=== PATIENT | male | born 1960 | race African-American/Black ===

== ENCOUNTER 2022-04-10 14:25 | Emergency (ER) | payer OTHER, SELFPAY ==
[2022-04-10 14:26] VITALS: BP 128/92; PULSE 113; RESP 15; TEMP 36.4; O2SAT 100; BMI 22.3
--- NOTE | 2022-04-10 14:37 | EKG12_ITS ---
Test Reason : SOB Blood Pressure : / mmHG Vent. Rate : 067 BPM Atrial Rate : 067 BPM P-R Int : 156 ms QRS Dur : 094 ms QT Int : 400 ms P-R-T Axes : 074 000 061 degrees QTc Int : 422 ms Normal sinus rhythm Nonspecific T wave abnormality Abnormal ECG Confirmed by JESUS HARLEY, FRANKIE ([id number]), rewrite editor GEO DE GUZMAN ([id number]) on 04/11/2022 12:00:17 PM Referred By: Confirmed By:FRANKIE LEE MD
--- NOTE | 2022-04-10 14:38 | EX.ED.DYSGE1 ---
HPI History of Present Illness Chief Complaint: Shortness of Breath Detail of Chief Complaint: Cough, chest pain, shortness of breath Informant: patient Narrative Narrative: Patient presents the emergency department with complaint of shortness of breath that seems to have slowed him down. Patient states that he initially started with a cough over the weekend which is about 4 or 5 days ago. Patient complains of intermittent chest discomfort in his chest in the center. Cough is nonproductive and thinks maybe it is getting better. He denies recent travel or surgery. He denies hemoptysis. Chest pain does not seem to be exertional. Patient has not had symptoms like this before. He denies fever. Patient has no medical history and normally goes to the [place]. Patient has no heart history. No history of PE or DVT. PFSH PFSH Home Medications benzonatate 100 mg capsule 100 mg PO TID PRN cough #20 caps 04/10/22 [Rx Last Taken Unknown] Allergy/AdvReac Type Severity Reaction Status Date / Time ibuprofen AdvReac Other Verified 04/10/22 14:26 Social History Smoking Status: Current some day smoker tobacco type: cigarettes ROS ROS ED Review of Systems ROS Unobtainable: other Constitutional Constitutional ED: Reports lethargy; Denies chills, fever(s), sweats or weight loss Eyes Eyes: Denies blurry vision, change in vision or diplopia ENT ENT ED: Denies rhinorrhea or sore throat Cardiovascular Cardiovascular: Reports chest pain; Denies orthopnea or racing heartbeat Respiratory/Chest Respiratory/Chest: Reports cough, dyspnea and dyspnea on exertion; Denies orthopnea or sputum Gastrointestinal Gastrointestinal: Denies abdominal pain, diarrhea, nausea or vomiting Genitourinary Genitourinary ED: Denies dysuria, hematuria or urinary frequency Musculoskeletal Musculoskeletal: Denies arthralgias, back pain, myalgias or neck pain Integumentary Denies abscess, Abrasions or rash Neurologic Neurologic: Denies headache(s) or weakness Psychiatric Psychiatric: Denies anxiety, depression or suicidal thoughts Endocrine Endocrinology: Denies polydipsia, polyphagia or polyuria Hematologic/Lymphatic Hematologic/Lymphatic: Denies easy bleeding, easy bruising or lymphadenopathy Allergic/Immunologic Allergic/Immunologic ED: Denies mouth swelling, tongue swelling or urticaria EXAM Physical Exam Const Vital Signs: 04/10/22 14:26 04/10/22 14:34 04/10/22 16:30 Temperature 97.5 F L Temperature Source Temporal Pulse Rate 113 H 58 L Respiratory Rate 15 14 Respiratory Effort Short of Breath Blood Pressure 128/92 H 152/84 H Blood Pressure Mean 104 106 Pulse Ox 100 100 Oxygen Delivery Method Room Air Room Air Positive well nourished and well developed General Appearance ED: well developed and NAD HEENT Reports TM's clear and moist mucous membranes normocephalic and atraumatic; Negative for trauma or tenderness Tympanic Membrane ED: Yes TM's clear Eyes PERRL and EOMs intact bilaterally General Eye ED: Negative for pale conjunctiva or scleral icterus Neck no lymphadenopathy, supple and no JVD General: Negative for tenderness Chest Wall inspection of chest normal and palpation of chest normal Chest: Negative for tenderness Resp normal respiratory effort and clear to auscultation bilaterally Effort and Inspection: Negative for respiratory distress or pain with movement Auscultation: Negative for rhonchi, wheezes or diminished lung sounds Cardio regular rate, regular rhythm, S1 normal heart sound, S2 normal heart sound and no murmurs Peripheral Pulses: pulses 2+ throughout GI normal to inspection, nondistended, normoactive bowel sounds, soft to palpation, non-tender, non-distended and no masses Back/Spine no CVA tenderness and no thoracic nor lumbar tenderness Extremity normal to inspection General Extremety ED: Negative for edema General Extremity: Negative for edema Neuro oriented x3, CN's II-XII intact bilaterally, no sensory deficits noted and gait normal Sensorium / Orientation: awake, alert, oriented to person, oriented to place and oriented to time Motor Exam: strength 5/5 throughout and strength abnormal Psych mental status grossly normal Skin no rashes or lesions noted and no wounds MDM MDM MDM Narrative Medical decision making narrative: IV line established on arrival. CBC with differential obtained was normal. Chemistries unremarkable. Troponin was normal. EKG showed a sinus rhythm with a rate of 67 bpm with some nonspecific ST changes. Because of the elevated D-dimer a CTA of the chest was obtained which was negative for PE or anything acute. COVID and flu rapid test were negative. At this point I suspect likely a viral upper respiratory infection. Patient will be given a prescription for Tessalon Perles. Patient advised to follow-up with his primary care physician within next 5 to 7 days. Patient to return if increasing shortness of breath, worsening chest pain, or condition worsen anyway. Lab Data Attestation: I reviewed the patient's lab results. Labs: Laboratory Results - last 24 hr 04/10/22 04/10/22 04/10/22 14:45 14:45 14:45 WBC 4.5 RBC 4.51 L Hgb 13.8 Hct 41.2 MCV 91.4 MCH 30.6 MCHC 33.5 RDW Std Deviation 42.9 RDW Coeff of Fady 12.8 Plt Count 173 MPV 8.5 Immature Gran % (Auto) 0.400 Neut % (Auto) 46.6 L Lymph % (Auto) 31.7 [place] % (Auto) 20.5 H Eos % (Auto) 0.4 Baso % (Auto) 0.4 Absolute Neuts (auto) 2.1 Absolute Lymphs (auto) 1.44 Nucleated RBC % 0 D-Dimer Quant (PE/DVT) 0.75 H* Sodium 140 Potassium 3.5 Chloride 108 H Carbon Dioxide 27.0 Anion Gap 5 BUN 18 Creatinine 1.76 H Estim Creat Clear Calc 41.57 Est GFR (MDRD) Af Amer 51 L Est GFR (MDRD) Non-Af 42 L BUN/Creatinine Ratio 10.2 Glucose 118 H Calcium 9.0 Troponin I High Sens 14 Radiography Chest X-Ray - ED: 1 View Diagnostic Testing: Clinical Impression(s) from Imaging Studies Chest X-Ray 04/10/22 15:00 IMPRESSION: Hyperinflation. The lungs are clear. Electronically Signed: Isma Gandhi MD at 15:32 EST , Chest CTA 04/10/22 15:15 IMPRESSION: Negative CTA chest. Electronically Signed: Lindy Schmidt MD at 16:58 EST Reading Location ID and State: [id number] / Tel , Service support , 1 view chest x-ray obtained interpreted by myself as no acute disease process. Radiology in agreement. EKG Initial EKG: Attestation: I personally reviewed and interpreted this EKG as follows: Comments: Sinus rhythm with a rate of [address] changes Discharge Plan Triage Chief Complaint: Shortness of Breath ED Provider: Lila Sinclair Dx/Rx/DC Orders Clinical Impression: Viral URI, Chest pain, Acute dyspnea Instructions: ED Chest Pain, Uncertain Cause, ED Dyspnea, ED URI, Viral, No Abx (Adult) Prescriptions: New benzonatate 100 mg capsule 100 mg PO TID PRN (Reason: cough) Qty: 20 0RF Primary Care Provider: [facility] Referrals: [facility] [Primary Care Provider] - 5-7 Days Disposition Disposition: Home, Self Care
[2022-04-10 14:58] LABS: Absolute Lymphocyte Count 1.44 X10^3/uL (0.83-4.51); Absolute Neutrophil Count 2.1 X10^3/uL (2.0-7.7); Basophil# 0.02 X10^3/uL; Basophil% 0.4 % (0-1); Eosinophil# 0.02 X10^3/uL; Eosinophils% 0.4 % (0-5); Hematocrit 41.2 % (40-54); Hemoglobin 13.8 g/dL (13.0-16.5); Lymphocyte # 1.44 X10^3/ul (0.83-4.51); Lymphocyte % 31.7 % (19-41); Mean Corp Hgb Conc 33.5 g/dL (32-36); Mean Corpuscular Hgb 30.6 pg (27.0-32.0); Mean Corpuscular Volume 91.4 fL (80-94); Mean Platelet Vol. 8.5 fl (6.2-12.0); Monocyte# 0.93 X10^3/uL; Monocyte% 20.5 % (0-10); NRBC Flagged by Analyzer 0 % (0-5); Neutrophil # 2.11 X10^3/uL (2.7-7.7); Neutrophil % 46.6 % (47-70); Platelet Count 173 K/mm3 (150-450); RBC Distribution Width CV 12.8 % (11.6-14.6); RBC Distribution Width SD 42.9 fl (35.1-43.9); Red Blood Count 4.51 M/mm3 (4.6-6.2); White Blood Count 4.5 K/mm3 (4.4-11.0)
--- NOTE | 2022-04-10 15:00 | RAD_ITS ---
STUDY: X-RAY CHEST REASON FOR EXAM: Male, 61 years old. Dyspnea TECHNIQUE: Single AP portable view of the chest. COMPARISON: Comparison is made with prior study dated 11/24/2015. FINDINGS: EKG lead clips are seen. Hyperinflation. The lungs are clear. There is no demonstrated pleural abnormality. Normal size heart. Normal mediastinum and david. Normal visualized pulmonary arteries. There is atherosclerotic tortuosity of the aortic arch and descending thoracic aorta. Normal visualized thoracic spine. Normal visualized ribs, clavicles, and shoulders. There is no demonstrated abnormality of the visualized soft tissue structures of the upper abdomen. RAD/Chest 1 View (Portable) IMPRESSION: Hyperinflation. The lungs are clear. Electronically Signed: Isma Gandhi MD at 15:32 EST ,
[2022-04-10 15:12] LABS: D-Dimer Quantitative (DVT/PE) 0.75 FEU/ug/m (0.27-0.49)
[2022-04-10] MEDS: 0.9% Normal Saline 1,000 ML 1000 ML IV (15:13)
--- NOTE | 2022-04-10 15:15 | CT_ITS ---
EXAM: CT ANGIOGRAPHY CHEST WITHOUT AND WITH INTRAVENOUS CONTRAST CLINICAL INDICATION: chest pain TECHNIQUE: Helically acquired angiography images were obtained of the chest without and with intravenous contrast. This CT exam was performed using one or more of the following dose reduction techniques: automated exposure control, adjustment of the mA and/or kV according to patient size, and/or use of iterative reconstruction technique. This report was created using [employer] report generation technology. MIP reconstructed images were created and reviewed. CONTRAST: IV 100mL Isovue-370 COMPARISON: None. FINDINGS: PULMONARY ARTERIES: Unremarkable. Normal in caliber. No evidence of pulmonary embolism. AORTA: Unremarkable. Normal in caliber. No evidence of dissection. GREAT VESSELS OF AORTIC ARCH: Unremarkable. Normal in caliber. No evidence of dissection. LUNGS AND PLEURAL SPACES: Unremarkable. No mass. No consolidation or edema. No pleural effusion or thickening. No pneumothorax. HEART: Unremarkable. Heart size is normal. No pericardial effusion. No signs of right heart strain, ratio of right ventricle to left ventricle measures less than 1. MEDIASTINUM: Unremarkable. No mediastinal or hilar adenopathy. Esophagus is unremarkable. No hiatal hernia. THYROID: Unremarkable. No thyroid lesions. BONES/JOINTS: Unremarkable. No suspicious lytic or blastic abnormality. CT/CTA Chest W/WO Contrast IMPRESSION: Negative CTA chest. Electronically Signed: Lindy Schmidt MD at 16:58 EST Reading Location ID and State: [id number] / Tel , Service support ,
[2022-04-10 15:17] LABS: Anion Gap 5 (5-15); BUN 18 mg/dL (7-18); BUN/Creat Ratio 10.2 RATIO (10-20); Chloride 108 mmol/L (98-107); Creatinine, Serum 1.76 mg/dL (0.70-1.30); EST Glomerular Filtration Rate 42 mL/min (>60); Est Glom Filt Rate - Afr Amer 51 mL/min (>60); Estimated Creatinine Clearance 41.57 ml/min; Glucose 118 mg/dL (74-106); Potassium 3.5 mmol/L (3.5-5.1); Sodium Level 140 mmol/L (136-145); Troponin-I HS 14 pg/mL (3.0-78.0)
[2022-04-10 16:30] VITALS: BP 152/84; PULSE 58; RESP 14; O2SAT 100
[2022-04-10 17:17] VITALS: BP 158/79; PULSE 62; RESP 15; O2SAT 98
== END 2022-04-10 17:18 | disposition home or self-care (01) ==
PROVIDERS: Emergency Provider Emergency Medicine; Visit Provider Emergency Medicine
DX: J06.9 Acute upper respiratory infection, unspecified (principal); R07.9 Chest pain, unspecified; F17.210 Nicotine dependence, cigarettes, uncomplicated; R06.02 Shortness of breath; Z20.822 Contact with and (suspected) exposure to COVID-19
CPT/HCPCS: 71045; 71275; 80048; 84484; 85025; 85379; 87428; 93005; 96360; 96361; 99283; J7030; Q9967; A4216

== ENCOUNTER 2024-04-22 16:32 | Emergency (ER) | payer OTHER, SELFPAY ==
[2024-04-22 16:32] VITALS: BP 188/103; PULSE 92; RESP 16; TEMP 36.7; O2SAT 100
--- NOTE | 2024-04-22 16:45 | CT_ITS ---
INDICATION: facial trauma EXAMINATION: CT FACIAL BONES - CT Maxillofacial W/O Contrast Injection TECHNIQUE: Helically acquired images were obtained of the facial bones. A radiation dose optimization technique was used for this scan. IV Contrast dosage and agent: None. COMPARISON: None. FINDINGS: SOFT TISSUES: Right-sided facial subcutaneous soft tissue edema. No discrete fluid collections. VISUALIZED PARANASAL SINUSES: Clear. VISUALIZED MASTOID AIR CELLS: Clear. Small amount of abnormal tissue in the right middle ear. Debris in the left external auditory canal. FACIAL BONES, MANDIBLE AND TMJs: No displaced facial bone fracture. No lytic or blastic abnormality. VISUALIZED DENTITION: No periodontal osseous erosion. ORBITAL CONTENTS: Both globes, extraocular muscles and retrobulbar fat appear unremarkable. CT/Sinus/Facial Bone IMPRESSION: No acute fracture the maxillofacial bones. 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 Recommend ENT consultation. Electronically Signed: Raffaele Bradshaw MD at 18:25 EST ,
--- NOTE | 2024-04-22 16:45 | CT_ITS ---
INDICATION: Trauma, head injury EXAMINATION: CT BRAIN - CT Head or Brain W/O Contrast Injection TECHNIQUE: Multiple axial images were obtained of the head without intravenous contrast. A radiation dose optimization technique was used for this scan. IV Contrast dosage and agent: None. COMPARISON: None. FINDINGS: BRAIN PARENCHYMA: No intra- or extra-axial hemorrhage. No evidence of acute infarct. No intracranial mass or mass effect. There is preservation of the amato/white matter interface. Posterior fossa structures are unremarkable. 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 Left temporal craniotomy changes. CSF SPACES: Appropriate for age. No hydrocephalus. Basal cisterns are patent. CALVARIUM, SKULL BASE, PARANASAL SINUSES AND MASTOID AIR CELLS: Clear. No discrete lytic or blastic abnormalities. ORBITS: Both globes, extraocular muscles, optic nerves and retrobulbar fat appear unremarkable. CT/Brain/Head without Contrast IMPRESSION: No acute intracranial findings. Electronically Signed: Raffaele Bradshaw MD at 18:29 EST ,
--- NOTE | 2024-04-22 16:45 | CT_ITS ---
INDICATION: Trauma, fall, injury EXAMINATION: CT CERVICAL SPINE - CT Spine Cervical W/O Contrast Injection TECHNIQUE: Helically acquired images were obtained of the cervical spine. 2D reformatted images were reviewed. A radiation dose optimization technique was used for this scan. IV Contrast dosage and agent: None. COMPARISON: None. FINDINGS: VERTEBRAE: No acute fracture of the cervical spine. Anatomic alignment. DISCS and SPINAL CANAL: Degenerative discogenic changes. No critical stenosis. NECK SOFT TISSUES: No prevertebral soft tissue swelling. LUNG APICES: No acute pulmonary findings. CT/Spine Cervical without Contras IMPRESSION: Degenerative changes. No acute fracture of the cervical spine. Electronically Signed: Raffaele Bradshaw MD at 18:32 EST ,
--- NOTE | 2024-04-22 16:45 | CT_ITS ---
INDICATION: right lower rib cage injury, fall down steps- right sided pain EXAMINATION: CT CHEST WITH CONTRAST - CT Chest W/ Contrast Injection TECHNIQUE: Helically acquired images were obtained of the chest following IV contrast. A radiation dose optimization technique was used for this scan. IV Contrast dosage and agent: 100 cc Isovue-370 COMPARISON: CTA chest 04/10/2022 FINDINGS: LUNGS, PLEURA AND LARGE AIRWAYS: No masses, consolidation, or edema. No pleural effusion. No pneumothorax. THYROID: No thyroid lesions. HEART AND PERICARDIUM: Heart size is normal. No pericardial effusion. VESSELS: No thoracic aortic aneurysm. No aortic dissection. No obvious central pulmonary embolism although this study was not performed with the pulmonary embolism protocol. MEDIASTINUM AND FESTUS: No mediastinal or hilar adenopathy. Esophagus is unremarkable. No hiatal hernia. UPPER ABDOMEN: No acute pathology. BONES: No acute bony abnormality. CT/Chest WITH Contrast IMPRESSION: No acute findings in the thorax. Electronically Signed: Raffaele Bradshaw MD at 18:41 EST ,
--- NOTE | 2024-04-22 16:45 | CT_ITS ---
INDICATION: fall and right lower rib trauma -- fall down steps- right sided pain EXAMINATION: CT ABDOMEN AND PELVIS WITH CONTRAST - CT Abdomen And Pelvis W/ Contrast Injection TECHNIQUE: Helically acquired images were obtained of the abdomen and pelvis following IV contrast. A radiation dose optimization technique was used for this scan. IV Contrast dosage and agent: 100 cc Isovue-370 Oral contrast: None. COMPARISON: None. FINDINGS: LOWER CHEST: Lung bases are clear. No cardiomegaly or pericardial effusion. LIVER: Homogeneous. No laceration or hematoma. GALLBLADDER AND BILIARY TREE: No calcified gallstones. No gallbladder distension or wall edema. No intra- or extrahepatic biliary ductal dilation. PANCREAS: No focal cystic or solid mass. SPLEEN: Unremarkable. ADRENAL GLANDS: No nodules. KIDNEYS AND URETERS: Right renal cysts. No hydronephrosis. PERITONEUM: No ascites or free air. BOWEL: Normal appendix. No stomach or bowel distension. No focal inflammatory change. LYMPH NODES: No enlarged mesenteric or retroperitoneal lymph nodes. VESSELS: Aorta is non-dilated. URINARY BLADDER: Unremarkable. REPRODUCTIVE ORGANS: No pelvic masses. ABDOMINAL WALL: [Fat-containing umbilical hernia. BONES: No acute or aggressive abnormality. CT/Abdomen/Pelvis W IV Cont ONLY IMPRESSION: No acute findings in the abdomen or pelvis. Electronically Signed: Raffaele Bradshaw MD at 18:50 EST ,
--- NOTE | 2024-04-22 16:48 | EX.ED.GENINJ ---
HPI History of Present Illness Chief Complaint: Laceration Informant: patient Onset/Context/Timing Onset: Today and Hours Mechanism/Context: Blunt Injury and Fall Location of pain/injuries: Right hand Quality of Pain: Sharp Current Severity: Mild Maximum Severity: Mild Associated Symptoms Associated Symptoms: Negative for Parasthesias, Weakness, Loss of function, Inability to ambulate or Loss of consciousness Narrative Narrative: 63-year-old male history of chronic kidney disease. States he normally does not drink he had 3 shots of liquor last night. He was going down his steps at his home he lost his balance tripped and fell down about 3 steps. Said he struck his right cheekbone, cut his right hand at the palm by the right small finger and injured his right lower rib cage. He does not believe he lost consciousness. He thinks this occurred around 2 AM. It is now almost 15 hours later. Unsure of his last tetanus. Denies recent illness. Tetanus Immunization: Unknown Prior similar symptoms: No Recent Illness/Hospitalization: No PFSH PFSH Home Medications ?Medication ?Instructions ?Recorded ?Last Taken ?Type benzonatate 100 mg capsule 100 mg PO TID PRN cough #20 caps 04/10/22 Unknown Rx Allergy/AdvReac Type Severity Reaction Status Date / Time ibuprofen AdvReac Other Verified 04/22/24 16:34 Social History Smoking Status: Current every day smoker tobacco type: cigarettes ROS ROS ED ROS Narrative Denies recent illness. Constitutional Constitutional ED: Denies chills or fever(s) Eyes Eyes: Denies blurry vision ENT ENT ED: Denies ear pain Cardiovascular Cardiovascular: Denies chest pain or palpitations Respiratory/Chest Respiratory/Chest: Denies cough or dyspnea Gastrointestinal Gastrointestinal: Denies abdominal pain Genitourinary Genitourinary ED: Denies dysuria or hematuria Musculoskeletal Musculoskeletal: Denies arthralgias or back pain Integumentary Denies abscess Neurologic Neurologic: Reports headache(s) Psychiatric Psychiatric: Denies anxiety or depression Endocrine Endocrinology: Denies cold intolerance Hematologic/Lymphatic Hematologic/Lymphatic: Denies easy bleeding Allergic/Immunologic Allergic/Immunologic ED: Denies mouth swelling EXAM Physical Exam Narrative Exam Narrative: 63-year-old male sitting upright in bed. Vital signs are stable afebrile. He is no acute distress. Pulse ox 9% on room air no signs hypoxia. H EENT exam scalp nontender. No laceration or hematoma. Pupils round reactive light. No dental injury. Right cheek zygomatic arch is tender mildly swollen. No gross bony deformity. Able to open close mouth any difficulty. Neck and trachea nontender. Back and spine nontender. No bruising. Lungs clear to auscultation bilaterally. Heart regular rate and rhythm rate about 90. Chest wall is right anterior lower rib rough planer tender to palpation. There is no crepitus or subcu air. Abdomen is soft, nontender, nondistended normal bowel sounds without peritoneal signs. Pelvic girdle intact. Moving all 4 extremities. Nontender no deformity. Normal strength. Normal range of motion. The palm of his right hand just proximal to the MCP he has a laceration under need to be repaired. Involves skin and subcu tissue. No active bleeding. He has full flexion extension to all digits of his right hand. There is no bony tenderness, deformity or swelling. Hands neurovascularly intact. Both wrists forearms elbows and shoulders are nontender. Neurologically is awake alert. Answering questions following commands. Const Vital Signs: 04/22/24 16:32 Temperature 98.1 F Temperature Source Oral Pulse Rate 92 Respiratory Rate 16 Blood Pressure 188/103 H Blood Pressure Mean 131 Pulse Ox 100 Oxygen Delivery Method Room Air Positive well nourished and well developed; Negative for obese, cachectic, contractures or unkempt General Appearance ED: well developed and NAD; Negative for unkempt, cachectic or contractures Nutritional Appearance: Negative for cachectic or obese HEENT HEENT Narrative: Right cheek bone and zygomatic arch tenderness. trauma and tenderness; Negative for atraumatic Eyes PERRL and EOMs intact bilaterally Chest Wall inspection of chest normal; Negative for palpation of chest normal Chest Narrative: Right lower rib cage tenderness midclavicular line. Resp normal respiratory effort and clear to auscultation bilaterally Auscultation: Negative for rales, rhonchi or wheezes Cardio regular rhythm, S1 normal heart sound, S2 normal heart sound and no murmurs Palpation: Negative for palpable S3 or palpable S4 Rate: regular rate; Negative for tachycardic Rhythm: Negative for abnormal rhythm GI normal to inspection, nondistended, normoactive bowel sounds, non-tender, non-distended and no masses Auscultation: normoactive bowel sounds Palpation: soft; Negative for tender, guarding or rebound tenderness present Back/Spine normal to inspection and no thoracic nor lumbar tenderness General Back: Negative for CVA tenderness Thoracic Spine / Upper Back: Negative for thoracic spinal tenderness Extremity full ROM; Negative for normal to inspection Extremity Narrative: Laceration palmar right hand near the MCP of the right small finger. Full flexion extension. No bleeding or infection. No foreign body. No bony tenderness or deformity. Neuro oriented x3, CN's II-XII intact bilaterally, moves all extremities and no focal motor deficits Emerson Coma Scale: document GCS findings Spontaneous Obeys Commands Oriented 15 Sensorium / Orientation: alert, oriented to person, oriented to place and oriented to time Motor Exam: strength 5/5 throughout Psych mental status grossly normal and thought process normal Appearance: Negative for unkempt Attitude: No agitated Mood & Affect: Negative for depressed, anxious or tearful Skin no rashes or lesions noted, no wounds, skin turgor normal and no jaundice Rashes: No rashes noted Trauma: Negative for abrasion PROC Procedures Lacerations Right palm laceration just proximal to MCP of the right small finger repair:: Length: 2 in Depth: Sub Q Shape: Linear Prep: Shelmo-Clens Laceration repair: Irrigated, Lidocaine, Local, Skin sutures and Wound explored Number of Sutures/Eddy: 5 Suture Information: Ethilon, Simple and 4-0 Comment: Right hand palm laceration about 2 inches just proximal to the MCP of the right small finger. Full flexion extension all digits. Normal touch sensation. Involves the skin and subcu tissue. No infection. No foreign body. No joint or tendon involvement. Locally anesthetized with plain lidocaine. Cleaned with Bryon-[place]. Washed and irrigated with saline. Explored. Closed using 5 simple erupted 4-0 Ethilon sutures. Proper hemostasis wound closure was obtained. Patient was instructed on wound care and suture removal in 10 days. MDM MDM MDM Narrative Medical decision making narrative: 63-year-old male was drinking alcohol last night tripped on the steps fell down about 3 steps hit his right cheekbone, cut his right hand and has right lower rib cage injury. Due to the alcohol and a head trauma. CAT scan of his head and facial bones. Also neck because he was drinking at the time. CAT scan of his chest for a possible rib fracture and abdomen because of the right lower rib cage injury. He will need his right hand suture repaired. Tetanus updated. Repeat exam patient is doing well at 7:45 PM. Right hand to be suture repair to be discharged home. Stitches out in 10 days. Watch for any signs of infection. Return if worse. History & Record Review Discussion w/independent historian: Patient Lab Data Attestation: I reviewed the patient's lab results. Lab results narrative: CBC shows a white count of 6. H&H 13 and 41. Platelets 202. Electrolytes show potassium 3.4. Gap 5. Normal BUN and creatinine of 14 and 1.4. Glucose 198. Alcohol levels negative. It is only 11. CT brain facial bones showed no acute abnormalities read by the radiologist and reviewed by me. CT C-spine chronic changes no acute abnormality. CT abdomen no acute abnormality. CT chest no acute abnormality. Labs: Laboratory Results - last 24 hr 04/22/24 16:54 WBC 6.3 RBC 4.64 Hgb 13.5 Hct 41.4 MCV 89.2 MCH 29.1 MCHC 32.6 RDW Std Deviation 42.0 RDW Coeff of Fady 12.9 Plt Count 202 MPV 8.7 Immature Gran % (Auto) 0.300 Neut % (Auto) 78.8 H Lymph % (Auto) 13.8 L [place] % (Auto) 6.7 Eos % (Auto) 0.2 Baso % (Auto) 0.2 Absolute Neuts (auto) 4.9 Absolute Lymphs (auto) 0.86 Nucleated RBC % 0 Sodium 140 Potassium 3.4 L Chloride 109 H Carbon Dioxide 26.0 Anion Gap 5 BUN 14 Creatinine 1.40 H Estim Creat Clear Calc 55.47 Est GFR (MDRD) Af Amer 66 Est GFR (MDRD) Non-Af 54 L BUN/Creatinine Ratio 10.0 Glucose 198 H Calcium 9.0 Ethyl Alcohol 11.0 Radiography Diagnostic Testing: Clinical Impression(s) from Imaging Studies Abdomen/Pelvis CT 04/22/24 16:45 IMPRESSION: No acute findings in the abdomen or pelvis. Electronically Signed: Raffaele Bradshaw MD at 18:50 EST Reading Location ID and State: [facility] / [place] Tel , Service support , Brain CT 04/22/24 16:45 IMPRESSION: No acute intracranial findings. Electronically Signed: Raffaele Bradshaw MD at 18:29 EST , Cervical Spine CT 04/22/24 16:45 IMPRESSION: Degenerative changes. No acute fracture of the cervical spine. Electronically Signed: Raffaele Bradshaw MD at 18:32 EST , Chest CT 04/22/24 16:45 IMPRESSION: No acute findings in the thorax. Electronically Signed: Raffaele Bradshaw MD at 18:41 EST , Facial/Sinus 04/22/24 16:45 IMPRESSION: No acute fracture the maxillofacial bones. 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 Recommend ENT consultation. Electronically Signed: Raffaele Bradshaw MD at 18:25 EST , Discharge Plan Triage Chief Complaint: Laceration ED Provider: Oscar Celestin Dx/Rx/DC Orders Clinical Impression: Fall down steps, Closed head injury, Laceration of right hand Instructions: ED Head Injury (Adult), ED Laceration, Hand: All Closures Prescriptions: No Action benzonatate 100 mg capsule 100 mg PO TID PRN (Reason: cough) Qty: 20 0RF [facility] Care Provider: [place] Ref[place] [facility] [Primary Care Provider] - 10 Day for suture removal Activity Restrictions/Additional Instructions: Tylenol for any pain. Clean and daily gently with soap and water. Dry thoroughly. Do not let it soak in any water. Stitches out in 10 days. Any signs of infection such as redness, swelling, streaks or pus return. Print Language: Bruneian Disposition Disposition: Home, Self Care
[2024-04-22] MEDS: Diphth,Pertuss(Acell),Tet Vac 0.5 ML Vial IM (16:58)
[2024-04-22] MEDS: Lidocaine 1% (20 ml mdv) 20 ML Vial 10 ML INFILT (16:58)
[2024-04-22 17:08] LABS: Absolute Lymphocyte Count 0.86 X10^3/uL (0.83-4.51); Absolute Neutrophil Count 4.9 X10^3/uL (2.0-7.7); Basophil# 0.01 X10^3/uL; Basophil% 0.2 % (0-1); Eosinophil# 0.01 X10^3/uL; Eosinophils% 0.2 % (0-5); Hematocrit 41.4 % (40-54); Hemoglobin 13.5 g/dL (13.0-16.5); Lymphocyte # 0.86 X10^3/ul (0.83-4.51); Lymphocyte % 13.8 % (19-41); Mean Corp Hgb Conc 32.6 g/dL (32-36); Mean Corpuscular Hgb 29.1 pg (27.0-32.0); Mean Corpuscular Volume 89.2 fL (80-94); Mean Platelet Vol. 8.7 fl (6.2-12.0); Monocyte# 0.42 X10^3/uL; Monocyte% 6.7 % (0-10); NRBC Flagged by Analyzer 0 % (0-5); Neutrophil # 4.93 X10^3/uL (2.7-7.7); Neutrophil % 78.8 % (47-70); Platelet Count 202 K/mm3 (150-450); RBC Distribution Width CV 12.9 % (11.6-14.6); Red Blood Count 4.64 M/mm3 (4.6-6.2); White Blood Count 6.3 K/mm3 (4.4-11.0)
[2024-04-22 17:16] LABS: Anion Gap 5 (5-15); BUN 14 mg/dL (7-18); Chloride 109 mmol/L (98-107); EST Glomerular Filtration Rate 54 mL/min (>60); Est Glom Filt Rate - Afr Amer 66 mL/min (>60); Estimated Creatinine Clearance 55.47 ml/min; Glucose 198 mg/dL (74-106); Potassium 3.4 mmol/L (3.5-5.1); Sodium Level 140 mmol/L (136-145)
== END 2024-04-22 20:20 | disposition home or self-care (01) ==
PROVIDERS: Emergency Provider Emergency Medicine; Visit Provider Emergency Medicine
DX: S09.90XA Unspecified injury of head, initial encounter (principal); N18.9 Chronic kidney disease, unspecified; S61.411A Laceration without foreign body of right hand, initial encounter; W10.9XXA Fall (on) (from) unspecified stairs and steps, initial encounter; Y92.009 Unspecified place in unspecified non-institutional (private) residence as the place of occurrence of the external cause; F17.210 Nicotine dependence, cigarettes, uncomplicated
CPT/HCPCS: 12002; 70450; 70486; 71260; 72125; 74177; 80048; 82077; 85025; 90715; 99284; Q9967; A4216